=== PATIENT | female | born 1945 | race Two or more races ===

== ENCOUNTER 2023-06-28 06:34 | Inpatient (IN) | payer OTHER ==
[~2023-06-28] VITALS: Ht 167.6 cm; Wt 75.2 kg
[2023-06-28] MEDS ORDERED: KETOROLAC TROMETH 30 MG/ML 1ML VIAL IV ONE (07:00)
[2023-06-28] MEDS ORDERED: ONDANSETRON HCL 4 MG/2 ML VIAL IV ONE (07:00)
[2023-06-28 07:08] LABS: Basophils # (auto) 0.1 10 ^3/uL (0-0.2); Basophils % (auto) 0.5 % (0.0-2.0); Eosinophils # (auto) 0 10 ^3/uL (0-0.8); Hematocrit 35.9 % (36.0-46.0); Hemoglobin 11.9 g/dL (12.2-16.2); Lymphocytes % (auto) 6.1 % (10.0-50.0); Mean Corpuscular Hgb Conc. 33.3 g/dL (32.0-36.0); Mean Corpuscular Volume 84.1 fL (80.0-100.0); Monocytes # (auto) 0.4 10 ^3/uL (0-1.3); Monocytes % (auto) 2.4 % (0.0-12.0); Neutrophils # (auto) 14.4 10 ^3/uL (1.6-8.6); Red Blood Cells 4.26 10^6/uL (4.0-5.20); Red Cell Distribution Width 13.6 % (11.8-14.3); White Blood Cell 15.8 10^3/uL (4.4-10.8)
[2023-06-28 08:40] LABS: Alanine Aminotransferase 16 U/L (7-40); Albumin 4.2 g/dL (3.2-4.8); Alkaline Phosphatase 100 U/L (46-116); Anion Gap 8 (5-15); Aspartate Aminotransferase 25 U/L (13-40); BUN/Creatinine Ratio 10.6 (10.0-20.0); Bilirubin, Total 1.1 mg/dL (0.2-1.0); Blood Urea Nitrogen 21 mg/dL (9-23); Calcium 9.1 mg/dL (8.7-10.4); Carbon Dioxide 23 mmol/L (20-30); Chloride 103 mmol/L (98-107); Glucose 217 mg/dL (74-106); Lipase 49 U/L (12-53); Potassium 4.2 mmol/L (3.5-5.1); Sodium 134 mmol/L (136-145)
[2023-06-28 08:41] VITALS: PULSE 104; RESP 29; O2SAT 97
[2023-06-28] MEDS ORDERED: PIPERACILLIN-TAZO 4.5GM 100 ML IV ONE (09:00)
[2023-06-28] MEDS ORDERED: SODIUM CHLORIDE 0.9% 1,000 ML IV ONE ×3 (09:00→11:45)
[2023-06-28] MEDS ORDERED: levoFLOXacin 500MG 100 ML IV ONE (09:00)
[2023-06-28] MEDS ORDERED: ASPirin 81 mg TAB PO ONE (10:15)
[2023-06-28] MEDS ORDERED: NITROGLYCERIN 0.4 MG SL TAB SL PRN (10:30)
[2023-06-28 10:32] LABS: COVID19 ANTIGEN SOFIA FIA NEGATIVE (NEGATIVE); Rapid Influenza A Negative (Negative); Rapid Influenza B Negative (Negative)
[2023-06-28 11:32] LABS: Urine Bacteria MOD /hpf (None Seen); Urine Blood Negative /uL (Negative); Urine Clarity HAZY (Clear); Urine Color Colorless (Yellow); Urine Hyaline Cast MANY /lpf (0 - 2); Urine Mucus MANY (None Seen); Urine Protein, UAD 2+ (Negative); Urine Specific Gravity 1.011 (1.001-1.035); Urine Urobilinogen Normal (Negative); Urine WBC 14 /hpf (0 - 5); Urine pH 6.5 (5.0-8.0)
[2023-06-28] MEDS ORDERED: MORPHINE SULFATE INJ 2 MG/ml SYRG IV PRN (11:45)
[2023-06-28 12:47] LABS: INR 1.07 (0.9-1.15); Prothrombin Time 11.2 sec (9.3-11.8)
[2023-06-28 13:21] LABS: Triglycerides 57 mg/dL (< 150)
[2023-06-28 13:22] LABS: LDL Cholesterol 60 mg/dL (< 100)
[2023-06-28 13:23] LABS: HDL Cholesterol 68 mg/dL (40-59)
[2023-06-28 13:24] LABS: Cholesterol 141 mg/dL (< 200)
[2023-06-28] MEDS: PIPERACILLIN-TAZOB 3.375GM 100 ML IV SCH ×2 (13:45→22:29)
[2023-06-28] MEDS ORDERED: PIPERACILLIN-TAZOB 3.375GM 100 ML IV SCH (14:00)
[2023-06-28] MEDS ORDERED: VANCOMYCIN PER PHARMACY 0 MG IV SCH (15:30)
[2023-06-28] MEDS ORDERED: VANCOMYCIN 1GM/250ML 250 ML IV ONE (15:33)
[2023-06-28] MEDS ORDERED: ONDANSETRON HCL 4 MG/2 ML VIAL IV PRN (18:30)
[2023-06-28] MEDS ORDERED: ACETAMINOPHEN 500 MG TAB PO ONE (20:30)
[2023-06-29] MEDS: PIPERACILLIN-TAZOB 3.375GM 100 ML IV SCH ×3 (06:01→22:41)
[2023-06-29 06:13] LABS: Anion Gap 9 (5-15); Carbon Dioxide 23 mmol/L (20-30); Chloride 105 mmol/L (98-107); Sodium 137 mmol/L (136-145)
[2023-06-29 06:14] LABS: Calcium 8.2 mg/dL (8.7-10.4)
[2023-06-29 06:19] LABS: Blood Urea Nitrogen 17 mg/dL (9-23); Glucose 116 mg/dL (74-106)
[2023-06-29 06:31] LABS: INR 1.11 (0.9-1.15); Partial Thromboplastin Time 36.6 SEC (24.5-34.5); Prothrombin Time 11.6 sec (9.3-11.8)
[2023-06-29 06:55] LABS: Basophils # (auto) 0 10 ^3/uL (0-0.2); Basophils % (auto) 0.2 % (0.0-2.0); Eosinophils # (auto) 0.1 10 ^3/uL (0-0.8); Eosinophils % (auto) 0.5 % (0.0-7.0); Hematocrit 34.5 % (36.0-46.0); Hemoglobin 10.8 g/dL (12.2-16.2); Lymphocytes # (auto) 1.4 10 ^3/uL (0.4-5.4); Lymphocytes % (auto) 9.2 % (10.0-50.0); Mean Corpuscular Hemoglobin 28.2 pg (28.0-32.0); Mean Corpuscular Hgb Conc. 31.4 g/dL (32.0-36.0); Mean Corpuscular Volume 89.8 fL (80.0-100.0); Monocytes # (auto) 0.4 10 ^3/uL (0-1.3); Monocytes % (auto) 2.7 % (0.0-12.0); Neutrophils # (auto) 13.8 10 ^3/uL (1.6-8.6); Neutrophils % (auto) 87.4 % (37.0-80.0); Red Blood Cells 3.84 10^6/uL (4.0-5.20); Red Cell Distribution Width 13.5 % (11.8-14.3); White Blood Cell 15.8 10^3/uL (4.4-10.8)
[2023-06-29 09:23] VITALS: BP_SYST 176; BP_SYST 178; BP_DIAS 68; BP_DIAS 75; PULSE 95; RESP 18; TEMP 98.4; O2SAT 95
[2023-06-29 10:00] VITALS: BP 178/58; PULSE 97; RESP 18; TEMP 98.3; O2SAT 96
[2023-06-29] MEDS: ASPirin 81 mg TAB PO SCH (11:57)
[2023-06-29] MEDS: D5W/ SOD CHL 0.9%/KCL 20MEQ 1,000 ML IV SCH ×2 (12:06→23:20)
[2023-06-29] MEDS ORDERED: SEMA2INJ3 SC (12:20)
[2023-06-29] MEDS ORDERED: GABA-1250 PO (12:22)
[2023-06-29] MEDS ORDERED: GABA-1308 PO (12:22)
[2023-06-29] MEDS ORDERED: LOSA50TA46 PO (12:23)
[2023-06-29] MEDS ORDERED: LOSA25TA15 PO (12:24)
[2023-06-29] MEDS ORDERED: ALEN70TA74 PO (12:26)
[2023-06-29 12:27] LABS: Magnesium 1.9 mg/dL (1.6-2.6)
[2023-06-29] MEDS ORDERED: INSU100I77 SC (12:27)
[2023-06-29 12:29] LABS: Phosphorus 3.8 mg/dL (2.4-5.1)
[2023-06-29] MEDS: hydrALAZINE HCL 20 MG/ML VL IV PRN (12:53)
[2023-06-29 13:40] VITALS: BP 163/64; PULSE 108; RESP 25; TEMP 100.8
[2023-06-29 13:55] LABS: Protein, Urine 112.1 mg/dL (0.0-11.9)
[2023-06-29 13:58] LABS: Creatinine, Urine 38.8 mg/dL (30.0-125.0); Urine Protein/Creatinine Ratio 2.89
[2023-06-29 17:00] VITALS: BP 159/73; PULSE 107; RESP 19; TEMP 99.6; O2SAT 92
[2023-06-29] MEDS ORDERED: VANCOMYCIN 500 MG in D5W 5% 100 ML IV ONE (18:00)
[2023-06-29 20:00] VITALS: BP 131/63; PULSE 79; PULSE 94; RESP 18; TEMP 98.6
[2023-06-29 22:00] VITALS: BP 131/63; PULSE 94; RESP 18; TEMP 98.6; O2SAT 95
[2023-06-29] MEDS: GABAPENTIN 100 MG CAP PO SCH (22:40)
[2023-06-30] VITALS (7 sets, daily range): BP systolic 122–170; BP diastolic 53–79; PULSE 73–98; RESP 16–20; TEMP 97.8–98.6; O2SAT 95–98
[2023-06-30] MEDS: PIPERACILLIN-TAZOB 3.375GM 100 ML IV SCH ×3 (06:34→22:49)
[2023-06-30 06:35] LABS: Basophils # (auto) 0 10 ^3/uL (0-0.2); Basophils % (auto) 0.1 % (0.0-2.0); Eosinophils # (auto) 0 10 ^3/uL (0-0.8); Eosinophils % (auto) 0.2 % (0.0-7.0); Hematocrit 30.8 % (36.0-46.0); Hemoglobin 10.1 g/dL (12.2-16.2); Lymphocytes # (auto) 0.9 10 ^3/uL (0.4-5.4); Lymphocytes % (auto) 5.7 % (10.0-50.0); Mean Corpuscular Hgb Conc. 32.8 g/dL (32.0-36.0); Mean Corpuscular Volume 85.6 fL (80.0-100.0); Monocytes # (auto) 0.4 10 ^3/uL (0-1.3); Monocytes % (auto) 2.6 % (0.0-12.0); Neutrophils # (auto) 14.1 10 ^3/uL (1.6-8.6); Neutrophils % (auto) 91.4 % (37.0-80.0); Red Cell Distribution Width 13.5 % (11.8-14.3); White Blood Cell 15.4 10^3/uL (4.4-10.8)
[2023-06-30] MEDS: D5W/ SOD CHL 0.9%/KCL 20MEQ 1,000 ML IV SCH (06:43)
[2023-06-30 06:55] LABS: Anion Gap 8 (5-15); Carbon Dioxide 25 mmol/L (20-30); Chloride 107 mmol/L (98-107); Sodium 140 mmol/L (136-145)
[2023-06-30 06:56] LABS: Calcium 7.7 mg/dL (8.5-10.1)
[2023-06-30 07:00] LABS: Glucose 248 mg/dL (74-106)
[2023-06-30 07:01] LABS: BUN/Creatinine Ratio 12.2 (10.0-20.0)
[2023-06-30 07:11] LABS: Blood Urea Nitrogen 27 mg/dL (9-23)
[2023-06-30] MEDS: GABAPENTIN 100 MG CAP PO SCH ×2 (08:59→22:49)
[2023-06-30] MEDS: LOSARTAN POTASSIUM 50 MG TAB PO SCH (08:59)
[2023-06-30] MEDS: ASPirin 81 mg TAB PO SCH (08:59)
[2023-06-30] MEDS: hydrALAZINE HCL 20 MG/ML VL IV PRN ×2 (11:58→17:38)
[2023-07-01] MEDS: D5W/ SOD CHL 0.9%/KCL 20MEQ 1,000 ML IV SCH ×2 (02:00→15:20)
[2023-07-01 04:20] VITALS: BP 135/67; PULSE 89; RESP 18; TEMP 98; O2SAT 98
[2023-07-01] MEDS: ACETAMINOPHEN 500 MG TAB PO PRN (05:02)
[2023-07-01] MEDS: PIPERACILLIN-TAZOB 3.375GM 100 ML IV SCH ×3 (06:09→21:37)
[2023-07-01 07:12] LABS: Basophils # (auto) 0.1 10 ^3/uL (0-0.2); Basophils % (auto) 0.3 % (0.0-2.0); Eosinophils # (auto) 0.1 10 ^3/uL (0-0.8); Eosinophils % (auto) 0.3 % (0.0-7.0); Hemoglobin 10.5 g/dL (12.2-16.2); Lymphocytes % (auto) 5.9 % (10.0-50.0); Mean Corpuscular Hemoglobin 28.2 pg (28.0-32.0); Mean Corpuscular Hgb Conc. 32.7 g/dL (32.0-36.0); Mean Corpuscular Volume 86.2 fL (80.0-100.0); Monocytes # (auto) 0.5 10 ^3/uL (0-1.3); Monocytes % (auto) 3.1 % (0.0-12.0); Neutrophils # (auto) 14.5 10 ^3/uL (1.6-8.6); Neutrophils % (auto) 90.4 % (37.0-80.0); Red Blood Cells 3.72 10^6/uL (4.0-5.20); Red Cell Distribution Width 13.8 % (11.8-14.3)
[2023-07-01 07:24] LABS: Chloride 111 mmol/L (98-107); Potassium 4.1 mmol/L (3.5-5.1); Sodium 143 mmol/L (136-145)
[2023-07-01 07:25] LABS: Anion Gap 9 (5-15); Carbon Dioxide 23 mmol/L (20-30)
[2023-07-01 07:26] LABS: Calcium 7.9 mg/dL (8.7-10.4)
[2023-07-01 07:31] LABS: BUN/Creatinine Ratio 12.4 (10.0-20.0); Blood Urea Nitrogen 26 mg/dL (9-23); Glucose 222 mg/dL (74-106)
[2023-07-01 08:00] VITALS: BP 133/65; PULSE 87; PULSE 88; RESP 18; TEMP 98.1; O2SAT 93
[2023-07-01 08:48] LABS: Blood Urea Nitrogen 22 mg/dL (9-23)
[2023-07-01 08:49] LABS: Anion Gap 9 (5-15); BUN/Creatinine Ratio 10.6 (10.0-20.0); Calcium 8.2 mg/dL (8.5-10.1); Carbon Dioxide 23 mmol/L (20-30); Chloride 111 mmol/L (98-107); Glucose 223 mg/dL (74-106); Potassium 3.9 mmol/L (3.5-5.1); Sodium 143 mmol/L (136-145)
[2023-07-01] MEDS: ASPirin 81 mg TAB PO SCH (09:12)
[2023-07-01] MEDS: GABAPENTIN 100 MG CAP PO SCH ×2 (09:12→21:34)
[2023-07-01] MEDS: LOSARTAN POTASSIUM 50 MG TAB PO SCH (09:12)
[2023-07-01 09:15] VITALS: BP 133/65; PULSE 81; RESP 18; TEMP 98.1; O2SAT 93
[2023-07-01] MEDS: hydrALAZINE HCL 20 MG/ML VL IV PRN ×2 (13:36→21:34)
[2023-07-01 16:44] VITALS: BP 158/65; PULSE 111; RESP 20; TEMP 100; O2SAT 91
[2023-07-01 20:00] VITALS: PULSE 96; RESP 18; O2SAT 96
[2023-07-01] MEDS: MORPHINE SULFATE INJ 2 MG/ml SYRG IV PRN (21:31)
[2023-07-01 22:00] VITALS: BP 188/59; PULSE 96; RESP 18; TEMP 98.6; O2SAT 99
[2023-07-02] VITALS (7 sets, daily range): BP systolic 148–173; BP diastolic 57–76; PULSE 91–106; RESP 16–19; TEMP 97.7–98.8; O2SAT 92–98
[2023-07-02] MEDS: D5W/ SOD CHL 0.9%/KCL 20MEQ 1,000 ML IV SCH (04:40)
[2023-07-02] MEDS: hydrALAZINE HCL 20 MG/ML VL IV PRN (05:46)
[2023-07-02] MEDS: MORPHINE SULFATE INJ 2 MG/ml SYRG IV PRN (05:47)
[2023-07-02] MEDS: PIPERACILLIN-TAZOB 3.375GM 100 ML IV SCH ×3 (05:47→21:51)
[2023-07-02 06:20] LABS: Anion Gap 13 (5-15); Carbon Dioxide 19 mmol/L (20-30); Chloride 112 mmol/L (98-107); Potassium 3.8 mmol/L (3.5-5.1); Sodium 144 mmol/L (136-145)
[2023-07-02 06:21] LABS: Calcium 8.5 mg/dL (8.7-10.4)
[2023-07-02 06:26] LABS: BUN/Creatinine Ratio 11.5 (10.0-20.0); Blood Urea Nitrogen 26 mg/dL (9-23); Glucose 307 mg/dL (74-106)
[2023-07-02 06:34] LABS: INR 0.95 (0.9-1.15); Partial Thromboplastin Time 26.9 SEC (24.5-34.5)
[2023-07-02 06:45] LABS: Basophils # (auto) 0 10 ^3/uL (0-0.2); Basophils % (auto) 0.3 % (0.0-2.0); Eosinophils # (auto) 0.3 10 ^3/uL (0-0.8); Eosinophils % (auto) 1.6 % (0.0-7.0); Hematocrit 34.6 % (36.0-46.0); Lymphocytes # (auto) 1.1 10 ^3/uL (0.4-5.4); Lymphocytes % (auto) 6.5 % (10.0-50.0); Mean Corpuscular Hemoglobin 28.2 pg (28.0-32.0); Mean Corpuscular Hgb Conc. 31.8 g/dL (32.0-36.0); Mean Corpuscular Volume 88.6 fL (80.0-100.0); Monocytes # (auto) 0.6 10 ^3/uL (0-1.3); Monocytes % (auto) 3.5 % (0.0-12.0); Neutrophils # (auto) 14.3 10 ^3/uL (1.6-8.6); Neutrophils % (auto) 88.1 % (37.0-80.0); Nucleated Red Blood Cells % 0.1 %; Red Cell Distribution Width 14.2 % (11.8-14.3); White Blood Cell 16.2 10^3/uL (4.4-10.8)
[2023-07-02] MEDS: ASPirin 81 mg TAB PO SCH (10:02)
[2023-07-02] MEDS: GABAPENTIN 100 MG CAP PO SCH ×2 (10:03→21:35)
[2023-07-02] MEDS: LOSARTAN POTASSIUM 50 MG TAB PO SCH (10:03)
[2023-07-02] MEDS ORDERED: TPN PER PHARMACY 0 ML IV SCH (11:30)
[2023-07-02] MEDS ORDERED: LABETALOL HCL 5 MG/ML 4ML SYRINGE IV PRN (11:45)
[2023-07-02 12:32] LABS: Magnesium 2.4 mg/dL (1.6-2.6)
[2023-07-02 12:34] LABS: Phosphorus 2.9 mg/dL (2.4-5.1)
[2023-07-02] MEDS ORDERED: AMINO ACID INFUSION IN D10W 1,000 ML IV NR (20:00)
[2023-07-02] MEDS: InsuLIN REG 1unit/0.01ml Soln (100units/ml) SC SCH (23:51)
[2023-07-03] VITALS (7 sets, daily range): BP systolic 142–185; BP diastolic 60–83; PULSE 82–95; RESP 18–20; TEMP 98.2–98.7; O2SAT 91–95
[2023-07-03] MEDS ORDERED: DEXTROSE (50%) 50ML SYRG IV SCH
[2023-07-03] MEDS: SODIUM BICARBONATE 50ML VIAL 50 ML in D5W/SOD CHL 0.45% 1,000 ML IV SCH ×2 (00:30→02:47)
[2023-07-03] MEDS: ACCU-CHEK COMFORT CURVE STRIP VI SCH ×4 (02:40→17:58)
[2023-07-03] MEDS: MORPHINE SULFATE INJ 2 MG/ml SYRG IV PRN (03:35)
[2023-07-03 05:54] LABS: Basophils # (auto) 0 10 ^3/uL (0-0.2); Basophils % (auto) 0.1 % (0.0-2.0); Eosinophils # (auto) 0.1 10 ^3/uL (0-0.8); Eosinophils % (auto) 0.4 % (0.0-7.0); Hemoglobin 10.8 g/dL (12.2-16.2); Lymphocytes % (auto) 6.3 % (10.0-50.0); Mean Corpuscular Hemoglobin 28.2 pg (28.0-32.0); Mean Corpuscular Hgb Conc. 31.7 g/dL (32.0-36.0); Mean Corpuscular Volume 89.1 fL (80.0-100.0); Monocytes # (auto) 1.1 10 ^3/uL (0-1.3); Monocytes % (auto) 6.5 % (0.0-12.0); Neutrophils # (auto) 13.9 10 ^3/uL (1.6-8.6); Neutrophils % (auto) 86.7 % (37.0-80.0); Red Blood Cells 3.81 10^6/uL (4.0-5.20); Red Cell Distribution Width 14.2 % (11.8-14.3); White Blood Cell 16.1 10^3/uL (4.4-10.8)
[2023-07-03 05:57] LABS: Alanine Aminotransferase 15 U/L (7-40); Alkaline Phosphatase 162 U/L (46-116); Anion Gap 10 (5-15); Aspartate Aminotransferase 19 U/L (13-40); BUN/Creatinine Ratio 15.4 (10.0-20.0); Bilirubin, Total 0.6 mg/dL (0.2-1.0); Blood Urea Nitrogen 33 mg/dL (9-23); Calcium 8.8 mg/dL (8.5-10.1); Carbon Dioxide 23 mmol/L (20-30); Chloride 116 mmol/L (98-107); Glucose 376 mg/dL (74-106); Phosphorus 1.3 mg/dL (2.4-5.1); Potassium 3.5 mmol/L (3.5-5.1); Total Protein 7.1 g/dL (5.7-8.2); Triglycerides 114 mg/dL (< 150)
[2023-07-03 06:14] LABS: Sodium 149 mmol/L (136-145)
[2023-07-03] MEDS: PIPERACILLIN-TAZOB 3.375GM 100 ML IV SCH ×3 (06:53→23:44)
[2023-07-03 07:00] LABS: Magnesium 2.5 mg/dL (1.6-2.6)
[2023-07-03] MEDS: InsuLIN REG 1unit/0.01ml Soln (100units/ml) SC SCH ×4 (07:12→23:54)
[2023-07-03] MEDS ORDERED: POTASSIUM PHOSPHATE 44 MEQ in D5W 5% 250 ML IV ONE (10:30)
[2023-07-03] MEDS ORDERED: VANCOMYCIN 750mg/250ml 250 ML IV ONE (11:15)
[2023-07-03] MEDS: SOD CHL 0.45% 1,000 ML IV SCH ×2 (11:56→20:00)
[2023-07-03] MEDS: ASPirin 81 mg TAB PO SCH (12:55)
[2023-07-03] MEDS: LOSARTAN POTASSIUM 50 MG TAB PO SCH (12:56)
[2023-07-03] MEDS: GABAPENTIN 100 MG CAP PO SCH ×2 (12:56→23:44)
[2023-07-03] MEDS ORDERED: GLYCERIN ADULT RECTAL SUPP PR ONE (15:15)
[2023-07-03] MEDS: hydrALAZINE HCL 20 MG/ML VL IV PRN (16:21)
[2023-07-03] MEDS ORDERED: PPN PER PHARMACY IV NR ×8 (20:00)
[2023-07-03] MEDS: ACETAMINOPHEN 500 MG TAB PO PRN (23:53)
[2023-07-04] MEDS: ACCU-CHEK COMFORT CURVE STRIP VI SCH ×5 (00:26→22:09)
[2023-07-04 05:00] VITALS: BP 177/83; PULSE 91; RESP 18; TEMP 97.8; O2SAT 92
[2023-07-04] MEDS: PIPERACILLIN-TAZOB 3.375GM 100 ML IV SCH ×3 (05:25→21:19)
[2023-07-04] MEDS: InsuLIN REG 1unit/0.01ml Soln (100units/ml) SC SCH ×4 (05:27→22:08)
[2023-07-04 05:37] LABS: Basophils # (auto) 0 10 ^3/uL (0-0.2); Basophils % (auto) 0.3 % (0.0-2.0); Eosinophils # (auto) 0.7 10 ^3/uL (0-0.8); Eosinophils % (auto) 4.7 % (0.0-7.0); Hematocrit 34.5 % (36.0-46.0); Hemoglobin 11.1 g/dL (12.2-16.2); Lymphocytes # (auto) 1.9 10 ^3/uL (0.4-5.4); Lymphocytes % (auto) 12.1 % (10.0-50.0); Mean Corpuscular Hemoglobin 27.5 pg (28.0-32.0); Mean Corpuscular Hgb Conc. 32.1 g/dL (32.0-36.0); Mean Corpuscular Volume 85.8 fL (80.0-100.0); Monocytes # (auto) 0.9 10 ^3/uL (0-1.3); Monocytes % (auto) 5.7 % (0.0-12.0); Neutrophils % (auto) 77.2 % (37.0-80.0); Red Blood Cells 4.02 10^6/uL (4.0-5.20); Red Cell Distribution Width 13.9 % (11.8-14.3); White Blood Cell 15.6 10^3/uL (4.4-10.8)
[2023-07-04 05:51] LABS: Alanine Aminotransferase 20 U/L (7-40); Alkaline Phosphatase 155 U/L (46-116); Anion Gap 13 (5-15); BUN/Creatinine Ratio 15.5 (10.0-20.0); Blood Urea Nitrogen 34 mg/dL (9-23); Calcium 8.6 mg/dL (8.7-10.4); Carbon Dioxide 22 mmol/L (20-30); Chloride 117 mmol/L (98-107); Glucose 236 mg/dL (74-106); Magnesium 2.2 mg/dL (1.6-2.6); Potassium 3.4 mmol/L (3.5-5.1); Sodium 152 mmol/L (136-145)
[2023-07-04 05:52] LABS: Albumin 3.9 g/dL (3.2-4.8); Aspartate Aminotransferase 27 U/L (13-40); Bilirubin, Total 0.5 mg/dL (0.2-1.0); Phosphorus 3.5 mg/dL (2.4-5.1); Total Protein 7.1 g/dL (5.7-8.2)
[2023-07-04] MEDS: SOD CHL 0.45% 1,000 ML IV SCH (06:00)
[2023-07-04] MEDS ORDERED: POTASSIUM PHOSPHATE 22 MEQ in SODIUM CHL 0.9% 100 ML IV ONE (10:00)
[2023-07-04] MEDS ORDERED: INSULIN LANTUS (GLARGINE) 1 /0.01ml (100units/ml) SC SCH (10:00)
[2023-07-04] MEDS: INSULIN LANTUS (GLARGINE) 1 /0.01ml (100units/ml) SC SCH ×2 (10:00→10:55)
[2023-07-04 10:35] VITALS: BP 132/74; PULSE 97; RESP 18; TEMP 98.4; O2SAT 97
[2023-07-04] MEDS: D5W 5% 1,000 ML IV SCH ×2 (10:45→20:45)
[2023-07-04] MEDS: GABAPENTIN 100 MG CAP PO SCH ×2 (10:47→21:19)
[2023-07-04] MEDS: ASPirin 81 mg TAB PO SCH (10:47)
[2023-07-04] MEDS: LOSARTAN POTASSIUM 50 MG TAB PO SCH (10:48)
[2023-07-04] MEDS ORDERED: VANCOMYCIN 750mg/250ml 250 ML IV ONE (13:00)
[2023-07-04 14:47] VITALS: BP 155/78; PULSE 97; RESP 18; TEMP 97.4; O2SAT 96
[2023-07-04 16:40] VITALS: BP 146/75; PULSE 77; RESP 18; TEMP 97.4; O2SAT 95
[2023-07-04 20:00] VITALS: PULSE 77; PULSE 82; RESP 20; O2SAT 95
[2023-07-04] MEDS ORDERED: PPN PER PHARMACY IV NR ×16 (20:00)
[2023-07-04] MEDS ORDERED: FLUCONAZOLE 100 MG TAB PO ONE (21:45)
[2023-07-04 22:00] VITALS: BP 138/64; PULSE 77; RESP 20; TEMP 98.1; O2SAT 95
[2023-07-04] MEDS: MICONAZOLE NITRATE 2 % VAGINAL CREAM 45 GM PV SCH (22:00)
[2023-07-05] VITALS (9 sets, daily range): BP systolic 116–171; BP diastolic 54–83; PULSE 74–84; RESP 16–20; TEMP 97.6–98.2; O2SAT 93–97
[2023-07-05] MEDS: ACETAMINOPHEN 500 MG TAB PO PRN ×2 (05:11→21:13)
[2023-07-05] MEDS: PIPERACILLIN-TAZOB 3.375GM 100 ML IV SCH ×3 (06:14→22:24)
[2023-07-05] MEDS: ACCU-CHEK COMFORT CURVE STRIP VI SCH ×4 (06:15→21:13)
[2023-07-05] MEDS: InsuLIN REG 1unit/0.01ml Soln (100units/ml) SC SCH ×4 (06:15→21:25)
[2023-07-05 06:18] LABS: Basophils # (auto) 0 10 ^3/uL (0-0.2); Basophils % (auto) 0.2 % (0.0-2.0); Lymphocytes # (auto) 2.5 10 ^3/uL (0.4-5.4); Lymphocytes % (auto) 16.8 % (10.0-50.0); Mean Corpuscular Volume 86.1 fL (80.0-100.0); Neutrophils # (auto) 10.5 10 ^3/uL (1.6-8.6); White Blood Cell 14.7 10^3/uL (4.4-10.8)
[2023-07-05 06:22] LABS: Eosinophils # (auto) 0.8 10 ^3/uL (0-0.8); Eosinophils % (auto) 5.6 % (0.0-7.0); Hematocrit 32.5 % (36.0-46.0); Hemoglobin 10.9 g/dL (12.2-16.2); Mean Corpuscular Hemoglobin 28.8 pg (28.0-32.0); Mean Corpuscular Hgb Conc. 33.4 g/dL (32.0-36.0); Monocytes # (auto) 0.9 10 ^3/uL (0-1.3); Monocytes % (auto) 5.8 % (0.0-12.0); Neutrophils % (auto) 71.6 % (37.0-80.0); Red Blood Cells 3.78 10^6/uL (4.0-5.20)
[2023-07-05] MEDS: D5W 5% 1,000 ML IV SCH (06:45)
[2023-07-05 06:49] LABS: Alanine Aminotransferase 21 U/L (7-40); Albumin 3.6 g/dL (3.2-4.8); Alkaline Phosphatase 129 U/L (46-116); Anion Gap 12 (5-15); Aspartate Aminotransferase 25 U/L (13-40); BUN/Creatinine Ratio 17.3 (10.0-20.0); Blood Urea Nitrogen 34 mg/dL (9-23); Calcium 8.2 mg/dL (8.7-10.4); Carbon Dioxide 21 mmol/L (20-30); Chloride 114 mmol/L (98-107); Glucose 120 mg/dL (74-106); Magnesium 1.8 mg/dL (1.6-2.6); Phosphorus 3.9 mg/dL (2.4-5.1); Potassium 3.5 mmol/L (3.5-5.1)
[2023-07-05 06:50] LABS: Bilirubin, Total 0.4 mg/dL (0.2-1.0); Total Protein 6.6 g/dL (5.7-8.2)
[2023-07-05 07:06] LABS: Sodium 147 mmol/L (136-145)
[2023-07-05] MEDS: ASPirin 81 mg TAB PO SCH (09:16)
[2023-07-05] MEDS: GABAPENTIN 100 MG CAP PO SCH ×2 (09:16→21:13)
[2023-07-05] MEDS: LOSARTAN POTASSIUM 50 MG TAB PO SCH (09:25)
[2023-07-05] MEDS ORDERED: INSULIN LANTUS (GLARGINE) 1 /0.01ml (100units/ml) SC SCH ×2 (10:00)
[2023-07-05] MEDS ORDERED: VANCOMYCIN 750mg/250ml 250 ML IV ONE (13:15)
[2023-07-05] MEDS ORDERED: amLODIPine BESYLATE 5 MG TAB PO ONE (17:45)
[2023-07-05] MEDS ORDERED: NIFEdipine ER 30 MG TAB PO ONE (17:45)
[2023-07-05] MEDS: hydrALAZINE HCL 20 MG/ML VL IV PRN (18:00)
[2023-07-05] MEDS ORDERED: VANCOMYCIN 1GM/250ML 250 ML IV ONE (18:15)
[2023-07-05] MEDS: MICONAZOLE NITRATE 2 % VAGINAL CREAM 45 GM PV SCH (21:08)
[2023-07-06 04:55] LABS: Basophils # (auto) 0.1 10 ^3/uL (0-0.2); Eosinophils # (auto) 0.5 10 ^3/uL (0-0.8); Hemoglobin 10.3 g/dL (12.2-16.2); Lymphocytes % (auto) 14.4 % (10.0-50.0); Monocytes # (auto) 0.7 10 ^3/uL (0-1.3); Nucleated Red Blood Cells % 0.1 %
[2023-07-06 04:58] LABS: Basophils % (auto) 0.4 % (0.0-2.0); Eosinophils % (auto) 3.5 % (0.0-7.0); Lymphocytes # (auto) 2.2 10 ^3/uL (0.4-5.4); Mean Corpuscular Hemoglobin 27.5 pg (28.0-32.0); Mean Corpuscular Hgb Conc. 32.1 g/dL (32.0-36.0); Mean Corpuscular Volume 85.5 fL (80.0-100.0); Monocytes % (auto) 4.3 % (0.0-12.0); Neutrophils # (auto) 11.9 10 ^3/uL (1.6-8.6); Neutrophils % (auto) 77.4 % (37.0-80.0); Red Blood Cells 3.75 10^6/uL (4.0-5.20); White Blood Cell 15.4 10^3/uL (4.4-10.8)
[2023-07-06 05:00] VITALS: BP 124/56; PULSE 83; RESP 18; TEMP 98.3; O2SAT 97
[2023-07-06 05:11] LABS: Alanine Aminotransferase 20 U/L (7-40); Albumin 3.5 g/dL (3.2-4.8); Alkaline Phosphatase 118 U/L (46-116); Anion Gap 10 (5-15); Aspartate Aminotransferase 22 U/L (13-40); BUN/Creatinine Ratio 15.1 (10.0-20.0); Bilirubin, Total 0.4 mg/dL (0.2-1.0); Blood Urea Nitrogen 31 mg/dL (9-23); Calcium 8.2 mg/dL (8.7-10.4); Carbon Dioxide 21 mmol/L (20-30); Chloride 111 mmol/L (98-107); Glucose 84 mg/dL (74-106); Potassium 3.7 mmol/L (3.5-5.1); Sodium 142 mmol/L (136-145); Total Protein 6.5 g/dL (5.7-8.2)
[2023-07-06] MEDS: PIPERACILLIN-TAZOB 3.375GM 100 ML IV SCH (05:25)
[2023-07-06] MEDS: ACETAMINOPHEN 500 MG TAB PO PRN (05:48)
[2023-07-06] MEDS: ACCU-CHEK COMFORT CURVE STRIP VI SCH ×2 (05:48→11:10)
[2023-07-06] MEDS: InsuLIN REG 1unit/0.01ml Soln (100units/ml) SC SCH ×2 (06:07→11:11)
[2023-07-06 08:00] VITALS: PULSE 83
[2023-07-06 09:10] VITALS: BP 131/62; PULSE 86; RESP 18; TEMP 97.8; O2SAT 96
[2023-07-06] MEDS ORDERED: MICO2CRE45 PV (09:47)
[2023-07-06] MEDS ORDERED: CIPR500T4 PO (09:48)
[2023-07-06] MEDS ORDERED: METR-344 PO (09:49)
[2023-07-06] MEDS ORDERED: ACET-1080 PO (09:53)
[2023-07-06] MEDS ORDERED: amLODIPine BESYLATE 5 MG TAB PO SCH (10:00)
[2023-07-06] MEDS ORDERED: INSULIN LANTUS (GLARGINE) 1 /0.01ml (100units/ml) SC SCH (10:00)
[2023-07-06] MEDS: GABAPENTIN 100 MG CAP PO SCH (10:09)
[2023-07-06] MEDS: ASPirin 81 mg TAB PO SCH (10:09)
[2023-07-06] MEDS: LOSARTAN POTASSIUM 50 MG TAB PO SCH (10:10)
[2023-07-06] MEDS ORDERED: LOSA50TA46 PO (12:13)
[2023-07-06] MEDS ORDERED: LINA5TAB PO (12:15)
[2023-07-06] MEDS ORDERED: SIMETHICONE 80 MG CHEWABLE TABLET PO ONE (12:15)
[2023-07-06 13:00] VITALS: BP 129/52; PULSE 91; RESP 16; TEMP 98.3; O2SAT 95
[2023-07-06] MEDS ORDERED: VANCOMYCIN 500 MG in D5W 5% 100 ML IV ONE (13:00)
== END 2023-07-06 14:10 | disposition home or self-care (01) | DRG 391 ==
LOC: ER 06:34 → TELE 11:29 → TELE-WESTW 06-29 08:58
PROVIDERS: ADMIT Internal Medicine; ATTEND Student in an Organized Health Care Education/Training Program
DX: K57.20 Diverticulitis of large intestine with perforation and abscess without bleeding (principal); I21.A1 Myocardial infarction type 2; N17.0 Acute kidney failure with tubular necrosis; N18.4 Chronic kidney disease, stage 4 (severe); N39.0 Urinary tract infection, site not specified; J98.11 Atelectasis; D84.81 Immunodeficiency due to conditions classified elsewhere; E11.22 Type 2 diabetes mellitus with diabetic chronic kidney disease; Z20.822 Contact with and (suspected) exposure to COVID-19; I12.9 Hypertensive chronic kidney disease with stage 1 through stage 4 chronic kidney disease, or unspecified chronic kidney disease; E78.00 Pure hypercholesterolemia, unspecified; D63.1 Anemia in chronic kidney disease; I27.20 Pulmonary hypertension, unspecified; E11.40 Type 2 diabetes mellitus with diabetic neuropathy, unspecified; B37.31 Acute candidiasis of vulva and vagina; E83.39 Other disorders of phosphorus metabolism; E86.0 Dehydration; Z79.84 Long term (current) use of oral hypoglycemic drugs; Z91.199 Patient's noncompliance with other medical treatment and regimen due to unspecified reason; Z90.49 Acquired absence of other specified parts of digestive tract
CPT/HCPCS: 36415; 71045; 71250; 74176; 76775; 80048; 80053; 80061; 80202; 81001; 82306; 82570; 82962; 83036; 83605; 83690; 83735; 83880; 83970; 84100; 84156; 84300; 84443; 84478; 84484; 85025; 85610; 85730; 86850; 86900; 86901; 87040; 87077; 87086; 87186; 87426; 87804; 93005; 93306; 99291; G0378; J1815; J1885; J1956; J2405; J2543; J3490; J7042; J7060

== ENCOUNTER 2023-07-12 09:16 | Inpatient (IN) | payer OTHER ==
[~2023-07-12] VITALS: Ht 167.6 cm; Wt 67.4 kg
[~2023-07-12 09:16] MED LIST: ACET-1080 PO; ALEN70TA74 PO; CIPR500T4 PO; GABA-1308 PO; LINA5TAB PO; LOSA50TA46 PO; METR-344 PO; MICO2CRE45 PV; SEMA2INJ3 SC
[2023-07-12 10:20] LABS: Basophils # (auto) 0.1 10 ^3/uL (0-0.2); Hemoglobin 10.2 g/dL (12.2-16.2); Mean Corpuscular Hgb Conc. 32.1 g/dL (32.0-36.0); Monocytes # (auto) 0.9 10 ^3/uL (0-1.3)
[2023-07-12 10:21] LABS: Basophils % (auto) 0.6 % (0.0-2.0); Eosinophils # (auto) 0 10 ^3/uL (0-0.8); Eosinophils % (auto) 0.2 % (0.0-7.0); Hematocrit 31.6 % (36.0-46.0); Lymphocytes # (auto) 1.3 10 ^3/uL (0.4-5.4); Lymphocytes % (auto) 6.2 % (10.0-50.0); Mean Corpuscular Hemoglobin 27.3 pg (28.0-32.0); Mean Corpuscular Volume 85.1 fL (80.0-100.0); Monocytes % (auto) 4.2 % (0.0-12.0); Neutrophils # (auto) 18.5 10 ^3/uL (1.6-8.6); Neutrophils % (auto) 88.8 % (37.0-80.0); Red Blood Cells 3.72 10^6/uL (4.0-5.20); Red Cell Distribution Width 14.6 % (11.8-14.3); White Blood Cell 20.8 10^3/uL (4.4-10.8)
[2023-07-12 10:41] LABS: Urine Bacteria NONE SEEN /hpf (None Seen); Urine Blood Negative /uL (Negative); Urine Budding Yeast LOADED /hpf (None Seen); Urine Clarity HAZY (Clear); Urine Color Yellow (Yellow); Urine Protein, UAD 1+ (Negative); Urine Specific Gravity 1.014 (1.001-1.035); Urine Urobilinogen Normal (Negative); Urine WBC 12 /hpf (0 - 5); Urine pH 5.5 (5.0-8.0)
[2023-07-12 10:46] LABS: Alanine Aminotransferase 21 U/L (7-40); Albumin 3.8 g/dL (3.2-4.8); Alkaline Phosphatase 137 U/L (46-116); Anion Gap 9 (5-15); Aspartate Aminotransferase 24 U/L (13-40); BUN/Creatinine Ratio 7.4 (10.0-20.0); Blood Urea Nitrogen 13 mg/dL (9-23); Calcium 8.4 mg/dL (8.7-10.4); Carbon Dioxide 23 mmol/L (20-30); Chloride 105 mmol/L (98-107); Glucose 176 mg/dL (74-106); Lipase 38 U/L (12-53); Potassium 4.2 mmol/L (3.5-5.1); Sodium 137 mmol/L (136-145)
[2023-07-12 10:47] LABS: Bilirubin, Total 0.5 mg/dL (0.2-1.0); Total Protein 7.2 g/dL (5.7-8.2)
[2023-07-12] MEDS ORDERED: CLINDAMYCIN 600MG IV 50 ML IV ONE (12:00)
[2023-07-12] MEDS ORDERED: SODIUM CHLORIDE 0.9% 1,000 ML IV ONE ×2 (12:00)
[2023-07-12] MEDS ORDERED: hydrALAZINE HCL 20 MG/ML VL IV PRN (14:45)
[2023-07-12] MEDS ORDERED: NITROGLYCERIN 0.4 MG SL TAB SL PRN (14:45)
[2023-07-12] MEDS: SOD CHL 0.45% 1,000 ML IV ONE (14:45)
[2023-07-12] MEDS ORDERED: MORPHINE SULFATE INJ 2 MG/ml SYRG IV PRN ×2 (14:45→15:00)
[2023-07-12] MEDS ORDERED: ONDANSETRON HCL 4 MG/2 ML VIAL IV PRN (15:00)
[2023-07-12 15:23] LABS: INR 1.14 (0.9-1.15); Prothrombin Time 11.9 sec (9.3-11.8)
[2023-07-13] VITALS (8 sets, daily range): BP systolic 124–164; BP diastolic 56–77; PULSE 78–86; RESP 16–20; TEMP 97.6–98.4; O2SAT 97–100
[2023-07-13] MEDS: PIPERACILLIN-TAZOB 3.375GM 100 ML IV ONE ×2 (02:19→02:20)
[2023-07-13] MEDS: PIPERACILLIN-TAZOB 3.375GM 100 ML IV SCH ×5 (02:20→22:18)
[2023-07-13] MEDS: SOD CHL 0.45% 1,000 ML IV ONE ×2 (06:46→13:20)
[2023-07-13 07:12] LABS: Basophils # (auto) 0.1 10 ^3/uL (0-0.2); Basophils % (auto) 0.5 % (0.0-2.0); Eosinophils # (auto) 0.1 10 ^3/uL (0-0.8); Hemoglobin 9.8 g/dL (12.2-16.2); Mean Corpuscular Hemoglobin 27.4 pg (28.0-32.0); Monocytes # (auto) 0.9 10 ^3/uL (0-1.3); Red Blood Cells 3.57 10^6/uL (4.0-5.20)
[2023-07-13 07:14] LABS: Eosinophils % (auto) 0.5 % (0.0-7.0); Lymphocytes # (auto) 1.6 10 ^3/uL (0.4-5.4); Lymphocytes % (auto) 9.6 % (10.0-50.0); Mean Corpuscular Hgb Conc. 31.5 g/dL (32.0-36.0); Mean Corpuscular Volume 86.8 fL (80.0-100.0); Monocytes % (auto) 5.3 % (0.0-12.0); Neutrophils # (auto) 13.7 10 ^3/uL (1.6-8.6); Neutrophils % (auto) 84.1 % (37.0-80.0); Red Cell Distribution Width 14.4 % (11.8-14.3); White Blood Cell 16.3 10^3/uL (4.4-10.8)
[2023-07-13 07:17] LABS: Alanine Aminotransferase 14 U/L (7-40); Albumin 3.8 g/dL (3.2-4.8); Alkaline Phosphatase 114 U/L (46-116); Anion Gap 9 (5-15); Aspartate Aminotransferase 18 U/L (13-40); BUN/Creatinine Ratio 7.4 (10.0-20.0); Blood Urea Nitrogen 12 mg/dL (9-23); Calcium 8.2 mg/dL (8.7-10.4); Carbon Dioxide 20 mmol/L (20-30); Chloride 106 mmol/L (98-107); Glucose 120 mg/dL (74-106); Sodium 135 mmol/L (136-145)
[2023-07-13 07:18] LABS: Bilirubin, Total 0.5 mg/dL (0.2-1.0); Total Protein 7.5 g/dL (5.7-8.2)
[2023-07-13] MEDS ORDERED: LIDOCAINE 2%HCL (LOCAL ANESTH.) INJ 10ml MDV ONE (08:51)
[2023-07-13] MEDS ORDERED: FLUMAZENIL 0.1 MG/ML INJ 10ML MDV IV ONE (11:39)
[2023-07-13] MEDS ORDERED: NALOXONE HCL 1MG/ML 2ML SYRINGE ONE (11:40)
[2023-07-13] MEDS ORDERED: fentaNYL CITRATE 100 MCG/2 ML VL IV ONE (11:45)
[2023-07-13] MEDS ORDERED: MIDAZOLAM HCL 2MG/2ML 2ml VIAL (1mg/ml) IV ONE (11:45)
[2023-07-13] MEDS ORDERED: MORPHINE SULFATE INJ 2 MG/ml SYRG IV PRN (13:45)
[2023-07-13] MEDS ORDERED: LIDOCAINE 1% (LOCAL ANESTH.) PF 5ml SDV ID ONE (15:15)
[2023-07-13] MEDS: SODIUM CHLOR 0.9% PF (SALINE LOCK) 10ML VIAL/SYR IV SCH (22:18)
[2023-07-14 05:00] VITALS: BP 128/66; PULSE 78; RESP 78; TEMP 97.5; O2SAT 96
[2023-07-14] MEDS: PIPERACILLIN-TAZOB 3.375GM 100 ML IV SCH ×2 (05:44→09:37)
[2023-07-14 06:08] LABS: Albumin 3.3 g/dL (3.2-4.8); Alkaline Phosphatase 85 U/L (46-116); Anion Gap 9 (5-15); Aspartate Aminotransferase 14 U/L (13-40); BUN/Creatinine Ratio 6.1 (10.0-20.0); Bilirubin, Total 0.4 mg/dL (0.2-1.0); Blood Urea Nitrogen 11 mg/dL (9-23); Calcium 8.2 mg/dL (8.5-10.1); Carbon Dioxide 21 mmol/L (20-30); Chloride 108 mmol/L (98-107); Glucose 132 mg/dL (74-106); Potassium 3.8 mmol/L (3.5-5.1); Sodium 138 mmol/L (136-145); Total Protein 6.5 g/dL (5.7-8.2)
[2023-07-14 06:29] LABS: Alanine Aminotransferase 12 U/L (7-40)
[2023-07-14 06:37] LABS: Basophils # (auto) 0.1 10 ^3/uL (0-0.2); Eosinophils # (auto) 0.3 10 ^3/uL (0-0.8); Lymphocytes # (auto) 1.8 10 ^3/uL (0.4-5.4); Lymphocytes % (auto) 15.7 % (10.0-50.0); Monocytes # (auto) 0.7 10 ^3/uL (0-1.3); Monocytes % (auto) 6.1 % (0.0-12.0)
[2023-07-14 06:40] LABS: Basophils % (auto) 0.6 % (0.0-2.0); Eosinophils % (auto) 2.8 % (0.0-7.0); Hematocrit 26.2 % (36.0-46.0); Hemoglobin 8.7 g/dL (12.2-16.2); Mean Corpuscular Hemoglobin 28.1 pg (28.0-32.0); Mean Corpuscular Hgb Conc. 33.3 g/dL (32.0-36.0); Mean Corpuscular Volume 84.4 fL (80.0-100.0); Neutrophils # (auto) 8.7 10 ^3/uL (1.6-8.6); Neutrophils % (auto) 74.8 % (37.0-80.0); Nucleated Red Blood Cells % 0.1 %; Red Blood Cells 3.11 10^6/uL (4.0-5.20); Red Cell Distribution Width 14.2 % (11.8-14.3); White Blood Cell 11.6 10^3/uL (4.4-10.8)
[2023-07-14 08:00] VITALS: PULSE 80
[2023-07-14 09:00] VITALS: BP 143/75; PULSE 81; RESP 17; TEMP 98.4; O2SAT 92
[2023-07-14] MEDS: SODIUM CHLOR 0.9% PF (SALINE LOCK) 10ML VIAL/SYR IV SCH (09:37)
== END 2023-07-14 12:30 | disposition home health service (06) | DRG 392 ==
LOC: ER 09:16 → TELE 14:42 → TELE-EAST 16:41
PROVIDERS: ADMIT Internal Medicine; ATTEND Internal Medicine
PROC: 0W9F30Z Drainage of Abdominal Wall with Drainage Device, Percutaneous Approach (ICD-10-PCS; principal; 2023-07-13)
PROC: 02HV33Z Insertion of Infusion Device into Superior Vena Cava, Percutaneous Approach (ICD-10-PCS; 2023-07-13)
DX: K57.20 Diverticulitis of large intestine with perforation and abscess without bleeding (principal); N18.4 Chronic kidney disease, stage 4 (severe); N30.00 Acute cystitis without hematuria; I12.9 Hypertensive chronic kidney disease with stage 1 through stage 4 chronic kidney disease, or unspecified chronic kidney disease; E78.5 Hyperlipidemia, unspecified; E11.22 Type 2 diabetes mellitus with diabetic chronic kidney disease; E11.65 Type 2 diabetes mellitus with hyperglycemia; I25.2 Old myocardial infarction; Z79.899 Other long term (current) drug therapy; Z90.49 Acquired absence of other specified parts of digestive tract; Z79.84 Long term (current) use of oral hypoglycemic drugs; N73.9 Female pelvic inflammatory disease, unspecified
CPT/HCPCS: 10005; 36415; 36569; 72192; 74176; 77012; 80053; 81001; 83605; 83690; 84484; 85025; 85610; 87040; 87077; 87081; 87205; 93005; C1729; G0378; J2001; J2250; J2543; J3490